=== PATIENT | female | born 1955 | race Caucasian/White ===

== ENCOUNTER 2024-03-03 07:23 | Emergency (ER) | payer OTHER, SELFPAY ==
--- NOTE | ~2024-03-03 | XR_ITS ---
EXAMINATION: XR CHEST CLINICAL INFORMATION: Cough. COMPARISON: None available. TECHNIQUE: Frontal view of the chest was obtained. FINDINGS: There is no gross pneumothorax. Heart size is normal. Degenerative changes in the thoracic spine. Minimal opacities in the left costophrenic angle. Linear stranding along the bilateral right upper paramediastinal and lower regions of indeterminate age and chronicity, most notable in the mid to lower right lung with a more tubular component. XR/XR chest 1V IMPRESSION: Minimal opacities in the left costophrenic angle. Linear stranding along the bilateral right upper paramediastinal and lower regions of indeterminate age and chronicity, most notable in the mid to lower right lung with a more tubular component. CT scan recommended for further evaluation. This study was presented today March 03, 2024 for interpretation. Stat results provided at this time as requested by referring provider. Electronically signed by: Shilpi Hallman MD 03/03/2024 09:42 AM [facility]
--- NOTE | ~2024-03-03 | CT_ITS ---
EXAMINATION: CT CHEST WITH CONTRAST CLINICAL INFORMATION: Abnormal chest x-ray. COMPARISON: No priors. Correlated to chest x-ray dated March 03, 2024. TECHNIQUE: Multidetector volumetric CT imaging of the chest was obtained after the administration of 65 mL of Omnipaque 350 intravenous contrast without immediate adverse reactions. Axial MIP volume rendering provided. Sagittal and coronal reformatted images were obtained. This CT examination was performed using dose optimization techniques as appropriate, variously including the following: *Automated exposure control *Adjustment of mA and/or kV according to patient size (this includes techniques or standardized protocols for targeted exams where dose is matched to indication/reason for exam; i.e. extremities or head) *Use of iterative reconstruction technique DLP: 268 mGy-cm FINDINGS: PATIENT ADVOCATE: No consolidation, pleural effusion or pneumothorax. Atelectasis in the periphery of the lung bases. No bronchiectasis. No honeycombing. No gross pulmonary nodules. Respiratory airways patent. No lymphadenopathy, mediastinum or pulmonary hilum. No pericardial effusion. Calcified plaques in the thoracic aortic arch. Calcified plaques in the coronary arteries. Multifocal different sizes lobulated and round hypodense lesions throughout the liver parenchyma. Thyroid gland is not enlarged. Old compression deformity of T5 representing 80% volume loss. Osteopenia versus osteoporosis. Superior endplate compression deformity at T7, T8 and T10. CT/CT chest w IV con IMPRESSION: No acute airspace disease. Old compression deformities more conspicuous at T5 vertebra. Nonspecific multifocal hypodense lesions throughout the hepatic parenchyma. Fleischner guidelines were followed. Electronically signed by: Jakob Doran MD 03/03/2024 02:11 PM [facility]
[2024-03-03 07:30] VITALS: BP 138/67; BP 144/62; PULSE 85; PULSE 88; RESP 16; TEMP 36.9; O2SAT 100; O2SAT 99; BMI 30.8
[2024-03-03 07:33] VITALS: RESP 16; O2SAT 100
--- NOTE | 2024-03-03 07:57 | ECG_ITS ---
Test Reason : CHEST PAIN Blood Pressure : / mmHG Vent. Rate : 071 BPM Atrial Rate : 071 BPM P-R Int : 140 ms QRS Dur : 080 ms QT Int : 386 ms P-R-T Axes : 037 004 008 degrees QTc Int : 419 ms Normal sinus rhythm Normal ECG No previous ECGs available Referred By: Kiki Isaacs Electronically Signed By:Sherwin Wright
--- NOTE | 2024-03-03 07:58 | ED.GENADULT ---
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 She notes since start of February after visiting her [facility] in [place] she started to get sick with cough, congestion, nasal congestion, had one day of fever in [place]. She returned home on 02/20 took Zpak without relief but no swabs or CXR done. This past week Myranda called in medrol dose marychuy which she has not taken as the first couple of days she didn't see any relief. She is not on nasal spray or decongestants. Started to have increased symptoms, feels weak, chest tightness, cough, L sided chest pain with breathing. MD complaint: weakness, lethargy, nausea and vomiting, chest tightness Onset (ago): week(s) (few) Location: head and chest Radiation: non-radiation Severity: moderate Quality: aching Pain Consistency: constant and intermittent Relieving factors: none Exacerbating factors: other (inspiration) Associated symptoms: chest pain, cough, headaches, loss of appetite, malaise, nausea/vomiting, shortness of breath and weakness Treatments prior to arrival: other Related Data Allergies Allergy/AdvReac Type Severity Reaction Status Date / Time Sulfa (Sulfonamide Allergy Hives Verified 03/03/24 07:32 Antibiotics) Review of Systems Review of Systems: Constitutional : No Fever, No Chills ENT/Mouth : No Hoarseness, No sore throat, No Rhinorrhea, pos sinus pressure, nasal congestion Eyes: No Redness, No Discharge, No Vision Changes Cardiovascular : pos Chest Pain, positive SOB, No Edema Respiratory : positive Cough, No Sputum, positive Wheezing, Gastrointestinal : No Nausea, No Vomiting, No Diarrhea, No abdominal Pain Genitourinary : No Dysuria, No Hematuria Musculoskeletal : No joint pain, No Myalgias Skin : No rash Neuro : pos Weakness, No Numbness, pos Headache Psych : No anxiety, depression All other systems reviewed and are negative [facility] Past Medical History Attestation statement: The following information was validated with the patient. Source: old records reviewed Medical History (Updated 03/03/24 @ 10:57 by Kiki Isaacs DO) Adrenal insufficiency Surgical History (Updated 03/03/24 @ 08:10 by Kiki Isaacs DO) History of surgical removal of pituitary gland Social History Social History Smoked in Last 30 Days: No Use of substances other than those prescribed or required for medical reasons: No Advance Directives: No Advance Directives Information Provided: Yes Physical Exam ED Vital Signs: Vital Signs - 24 hr 03/03/24 07:30 03/03/24 07:33 03/03/24 10:50 Temperature 98.4 F Pulse Rate 85 86 Respiratory Rate 16 16 18 Blood Pressure 144/62 H 118/56 L Pulse Oximetry 99 100 97 Oxygen Delivery Method Room Air Room Air Room Air 03/03/24 12:33 03/03/24 12:54 Temperature Pulse Rate 83 93 Respiratory Rate 18 16 Blood Pressure 102/56 L Pulse Oximetry 97 95 Oxygen Delivery Method Room Air Room Air BMI result Body Mass Index 30.8 Appearance: Alert. Oriented X3. No acute distress. Eyes: Pupils equal, round and reactive to light. ENT: Pharynx normal. TMs normal bilaterally Neck: Normal inspection. Neck supple. CVS: Normal heart rate and rhythm. Pulses normal. Respiratory: No respiratory distress. Breath sounds normal. Abdomen: Soft and nontender. Skin: Skin warm and dry. Normal skin color. Extremities: No lower extremity edema. Neuro: Oriented X 3. No motor deficit. No sensory deficit. Medications Administered Discontinued Medications Generic Name Dose Route Start Last Admin Trade Name Freq PRN Reason Stop Dose Admin Hydrocortisone Sodium Succinate 50 mg 03/03/24 13:18 03/03/24 13:36 Hydrocortisone Sod Succ/Pf 100 Mg Vial IVPUSH 03/03/24 13:19 50 mg ONCE ONE Administration Sodium Chloride 1,000 mls @ 999 mls/hr 03/03/24 07:57 03/03/24 10:11 Ns IV 03/03/24 08:57 Infused .Q1H1M ONE Infusion Iohexol 65 ml 03/03/24 10:27 03/03/24 10:28 Iohexol 350 Mg/Ml 100 Ml Infus..Btl IV 03/03/24 10:28 65 ml ONCE ONE Administration Ondansetron HCl 4 mg 03/03/24 07:57 03/03/24 08:59 Ondansetron Hcl 4 Mg/2 Ml Vial IVPUSH 03/03/24 07:58 4 mg ONCE ONE Administration Medical Decision Making Medical Decision Making [facility] Narrative: 68 yo female with 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 She now has chest pain and dyspnea at this time given recent travel and her symptoms will start on fluids, IV zofran, obtain viral panel, basic labs, ddimer, EKG, CXR for pathology Differential Diagnosis Differential Diagnoses: The differential diagnosis associated with the presentation includes URI, VTE, fatigue, lyte abnormality Admission/Observation Consideration of admission/observation: Escalation of care including admission/observation considered labs and VS reassuring no hypoxia suspect her prolonged illness due to post covid recovery Lab Data [facility] Lab Attestation statement: I reviewed the patient's lab results. TSH low but T4 normal her PCP can re order test next week 03/03/24 08:45 03/03/24 08:45 Labs: Lab Results 03/03/24 03/03/24 Range/Units 08:44 08:45 WBC 8.6 (4.8-10.8) X10*3/uL RBC 4.81 (4.20-5.50) X10*6/uL Hgb 13.7 (12.0-16.0) g/dl Hct 42.2 (37.0-47.0) % MCV 87.7 (80.0-98.0) fL MCH 28.5 (27.0-33.0) pg MCHC 32.5 (31.0-35.0) g/dl RDW 13.7 (11.0-16.0) % Plt Count 268 (160-400) X10*3/uL MPV 9.6 (9.4-12.3) fL Immature Gran % (Auto) 0.3 (0.0-0.4) % Neut % (Auto) 64.4 (45-73) % Lymph % (Auto) 26.5 (20-40) % [place] % (Auto) 6.7 (2-11) % Eos % (Auto) 1.3 (0-4) % Baso % (Auto) 0.8 (0-2) % Lymph # (Auto) 2.3 (1.2-4.9) X10*3/uL [place] # (Auto) 0.6 (0.1-1.2) X10*3/uL Eos # (Auto) 0.1 (0.0-0.4) X10*3/uL Baso # (Auto) 0.1 (0.0-0.2) X10*3/uL Abs Immat Gran (auto) 0.03 (0.00-0.03) X10*3/uL Absolute Neuts (auto) 5.6 (2.0-8.3) x10*3/uL Absolute Nucleated RBC 0.000 (0.0-0.012) X10*3/uL Nucleated RBC % (auto) 0.0 (0.0-0.2) /100WBC D-Dimer High Sensitivty < 150 NG/ML Sodium 136 (135-145) mmol/L Potassium 3.8 (3.3-5.1) mmol/L Chloride 101 (96-108) mmol/L Carbon Dioxide 28 (22-29) mmol/L Anion Gap 11 L (12-20) BUN 14 (9-16) mg/dL Creatinine 0.84 (0.5-1.4) mg/dL Estim Creat Clear Calc 63.0 Estimated GFR > 60 Random Glucose 100 (60-115) mg/dL Calcium 8.5 (8.4-10.2) mg/dL Magnesium 2.1 (1.6-2.6) mg/dL Total Bilirubin 1.0 (0.0-1.0) mg/dL Direct Bilirubin 0.3 (0.0-0.5) mg/dL AST 26 (5-31) U/L ALT 17 (0-31) U/L Alkaline Phosphatase 60 (39-117) U/L Troponin I High Sens < 2.7 (<3.5-17.0) ng/L Total Protein 6.8 (6.5-8.0) g/dL Albumin 3.7 (3.5-5.0) g/dL Lipase 47 (8-78) U/L TSH < 0.01 L (0.32-4.0) uIU/mL Free T4 1.46 (0.71-1.85) ng/dL Influenza Type A (PCR) NEGATIVE (Negative) Influenza Type B (PCR) NEGATIVE (Negative) RSV RNA Qual (PCR) NEGATIVE (Negative) SARS-CoV-2 RNA (RT-PCR) POSITIVE A (Negative) Independent Interpretation I performed an independent interpretation of an: EKG, Plain X-Ray (subtle opacities) and CT Scan (no pneumonia) Interpretation: Rate: 71 Rhythm: NSR [place]: normal Normal P waves. Normal JUNE. Normal QRS complex. ST T wave : inverted t waves V1 and III, no SHARIFA qTC: 419 prior studies: no acute ischemia The study has been interpreted contemporaneously by me. . Radiology Impression Discussion of test interpretation with radiology: I have reviewed the radiologist's reading. Independent Historian Clinical information obtained from an independent historian. History obtained from or confirmed by: Spouse Discharge Plan Discharge Clinical Impression: Post covid-19 condition, unspecified Patient Disposition: Home, Self-Care Instructions: Weakness (ED) Additional Instructions: call your doctor but during this time I would increase your prednisone to 20mg a day for 4 days then back down to 10mg a day for 3 days then back down to 5mg to see if this helps. your labs were reassuring TSH 0.01 Free T4 1.46 follow up with your doctor there were no signs of infection in the lung you had small cysts on the liver would get outpatient ultrasound with your doctor your liver enzymes are normal return for any worsening symptoms or concerns. stay hydrated monitor your breathing and any chest pains old compression deformity of T5 nothing new CT/CT chest w IV con IMPRESSION: No acute airspace disease. Old compression deformities more conspicuous at T5 vertebra. Nonspecific multifocal hypodense lesions throughout the hepatic parenchyma. Fleischner guidelines were followed. Print Language: Paraguayan
[2024-03-03 08:55] LABS: MANUAL DIFF FLAG NO
[2024-03-03 08:57] LABS: Basophils Absolute Auto 0.1 X10*3/uL (0.0-0.2); Basophils Percent Auto 0.8 % (0-2); Eosinophils Absolute Auto 0.1 X10*3/uL (0.0-0.4); Eosinophils Percent Auto 1.3 % (0-4); Hematocrit 42.2 % (37.0-47.0); Hemoglobin 13.7 g/dl (12.0-16.0); Imm Gran Abs Auto 0.03 X10*3/uL (0.00-0.03); Imm Gran Pct Auto 0.3 % (0.0-0.4); Lymphocytes Absolute Auto 2.3 X10*3/uL (1.2-4.9); Lymphocytes Percent Auto 26.5 % (20-40); Mean Corpuscular HGB Conc 32.5 g/dl (31.0-35.0); Mean Corpuscular Hemoglobin 28.5 pg (27.0-33.0); Mean Corpuscular Volume 87.7 fL (80.0-98.0); Mean Platelet Volume 9.6 fL (9.4-12.3); Monocytes Absolute Auto 0.6 X10*3/uL (0.1-1.2); Monocytes Percent Auto 6.7 % (2-11); Neutrophils Absolute Auto 5.6 x10*3/uL (2.0-8.3); Neutrophils Percent Auto 64.4 % (45-73); Platelet Count 268 X10*3/uL (160-400); Red Blood Count 4.81 X10*6/uL (4.20-5.50); Red Cell Distribution Width 13.7 % (11.0-16.0); White Blood Count 8.6 X10*3/uL (4.8-10.8)
[2024-03-03] MEDS: ondansetron HCL 4 MG/2 ML VIAL IVPUSH (08:59)
[2024-03-03] MEDS: 0.9 % Sodium Chloride 1,000 ML 999 ML IV (08:59)
[2024-03-03 09:05] LABS: D Dimer High Sensitivity < 150 NG/ML
[2024-03-03 09:17] LABS: Alanine Aminotransferase 17 U/L (0-31); Albumin Level 3.7 g/dL (3.5-5.0); Alkaline Phosphatase 60 U/L (39-117); Anion Gap 11 (12-20); Aspartate Amino Transferase 26 U/L (5-31); Bilirubin Direct 0.3 mg/dL (0.0-0.5); Blood Urea Nitrogen 14 mg/dL (9-16); Calcium 8.5 mg/dL (8.4-10.2); Carbon Dioxide 28 mmol/L (22-29); Chloride 101 mmol/L (96-108); Estimated Glomerular Filt Rate > 60; Glucose Random 100 mg/dL (60-115); Lipase 47 U/L (8-78); Magnesium 2.1 mg/dL (1.6-2.6); Potassium 3.8 mmol/L (3.3-5.1); Sodium 136 mmol/L (135-145); Total Protein 6.8 g/dL (6.5-8.0)
[2024-03-03 09:24] LABS: Troponin-I High Sensitivity < 2.7 ng/L (<3.5-17.0)
[2024-03-03 09:38] LABS: Influenza A PCR NEGATIVE (Negative); Influenza B PCR NEGATIVE (Negative); Resp Syncy Virus RNA Qual PCR NEGATIVE (Negative); SARS COV2 PCR INHOUSE POSITIVE (Negative)
[2024-03-03 10:21] LABS: TSH reflex Free T4 < 0.01 uIU/mL (0.32-4.0)
[2024-03-03] MEDS: iohexoL 350 MG/ML 100 ML INFUS..BTL 65 ML IV (10:28)
[2024-03-03 10:50] VITALS: BP 118/56; PULSE 86; RESP 18; O2SAT 97
[2024-03-03 10:51] LABS: Free T4 (Free Thyroxine) 1.46 ng/dL (0.71-1.85)
[2024-03-03 12:33] VITALS: PULSE 83; RESP 18; O2SAT 97
[2024-03-03 12:54] VITALS: BP 102/56; PULSE 93; RESP 16; O2SAT 95
[2024-03-03] MEDS: Hydrocortisone Sod Succ/PF 100 MG VIAL 50 MG IVPUSH (13:36)
[2024-03-03 15:03] VITALS: BP 102/56; PULSE 93; RESP 16; TEMP -17.7; TEMP 0; O2SAT 95
== END 2024-03-03 15:04 | disposition home or self-care (01) ==
PROVIDERS: Emergency Provider Emergency Medicine
DX: U07.1 COVID-19 (principal)
CPT/HCPCS: 0241U; 36415; 71045; 71260; 80048; 80076; 83690; 83735; 84439; 84443; 84484; 85025; 85379; 93005; 96361; 96374; 96375; 99284; 99285; J1720; J2405; Q9967

== ENCOUNTER → 2024-03-03 07:57 | Outpatient (BNV) | payer OTHER, SELFPAY | PROVIDERS: Emergency Provider Emergency Medicine; Visit Provider Internal Medicine Cardiovascular Disease | DX: R07.9 Chest pain, unspecified (principal) | CPT/HCPCS: 93010 ==

== ENCOUNTER → 2024-03-03 09:46 | Outpatient (BNV) | payer OTHER, SELFPAY | PROVIDERS: Emergency Provider Emergency Medicine; Visit Provider Radiology Diagnostic Radiology | DX: K76.89 Other specified diseases of liver (principal) | CPT/HCPCS: 71260 ==

== ENCOUNTER 2024-09-21 12:36 | Emergency (ER) | payer OTHER, SELFPAY ==
[2024-09-21 13:20] VITALS: BP 145/82; PULSE 111; RESP 20; TEMP 35.9; O2SAT 99; BMI 30.8
--- NOTE | 2024-09-21 13:26 | ED_ITS ---
HPI - General Adult General Chief complaint: Ear Problems Stated complaint: Left ear issue Time Seen by Provider: 09/21/24 15:33 Source: patient and RN notes reviewed Mode of arrival: ambulatory Limitations: no limitations History of Present Illness ED Provider: Robyn Willard PA-C [facility] narrative: This is a 68-year-old female who presents emergency department with concerns of left ear pain. Reports that she has had ear pain for several weeks however this worsened significantly this past week. She was seen at her primary care physician on Sunday, and was told that she had some wax building up in her ear and they attempted to remove the wax with irrigation in the office. There was no earwax that was able to be removed from the ear canal itself. She was started on azithromycin which she has had 2 doses of, and she also has been using Debrox however no cerumen has been removed and she continues to have severe ear pain. She also has pain that extends into her left maxillary region. She denies any fevers, chills, chest pain, shortness of breath, abdominal pain, nausea, vomiting or diarrhea. No other complaints or concerns at this time. MD complaint: Ear pain Onset (ago): week(s) Radiation: non-radiation Pain Consistency: constant Relieving factors: none Exacerbating factors: none Associated symptoms: denies other symptoms Treatments prior to arrival: none Related Data Previous Rx's ?Medication ?Instructions ?Recorded loratadine 10 mg tablet 10 mg PO DAILY #30 tabs 09/09 06/03 Allergies Allergy/AdvReac Type Severity Reaction Status Date / Time amoxicillin (From Augmentin) Allergy Vomiting Verified 09/21/24 13:25 clavulanic acid (From Allergy Vomiting Verified 09/21/24 13:25 Augmentin) Sulfa (Sulfonamide Allergy Hives Verified 09/21/24 13:24 Antibiotics) Review of Systems 2 Review of Systems: Yes all other systems are reviewed and are negative Constitutional: Constitutional: Reports as per [facility] Past Medical History Attestation statement: The following information was validated with the patient. Medical History Adrenal insufficiency Surgical History History of surgical removal of pituitary gland Social History Social History (Reviewed 09/21/24 @ 17:30 by EVON Patterson Advance Directives: No Advance Directives Information Provided: Yes Do you have a plan to hurt others: No Plan Physical Exam ED Vital Signs: Vital Signs - 24 hr 09/21/24 13:20 09/21/24 17:13 Temperature 96.7 F L 96.7 F L Pulse Rate 111 H 111 H Respiratory Rate 20 20 Blood Pressure 145/82 H 145/82 H Pulse Oximetry 99 99 Oxygen Delivery Method Room Air Room Air BMI result Body Mass Index 30.8 Const General: cooperative, comfortable and no acute distress Orientation/consciousness: patient oriented x3 Limitations: no limitations HENMT Other: left auditory canal is obscured by cerumen. R TM is nonerythematous, nonedematous. Head: Yes normal to inspection, Yes normocephalic and Yes atraumatic Ears: hearing grossly normal bilaterally General nose exam: Normal external nose present Face and sinus: Yes normal facial exam Mouth: Normal oral and palatal mucosa present, oropharynx normal and moist mucous membranes Throat: Yes posterior oropharynx normal Eyes General: appearance normal, both eyes and all related structures Eyelids: Yes eyelids normal Conjunctivae: conjunctivae normal Sclerae: sclerae normal Pupils: Equal, round and reactive pupils present EOM: EOMs intact bilaterally Neck Neck: Yes normal visual inspection, Yes full ROM and Yes no lymphadenopathy Lymphatic: no lymphadenopathy noted Chest Chest palpation & inspection: normal inspection of the chest Resp Effort & Inspection: normal respiratory effort and able to speak in complete sentences Auscultation: clear to auscultation bilaterally, no crackles, no rales, no rhonchi and no wheezes Cardio Rate: regular rate Rhythm: regular rhythm Heart sounds: S1 normal heart sound present and S2 normal heart sound present GI Inspection: Yes normal to inspection Skin General skin exam: no rashes or lesions noted Trauma: no lacerations or abrasions Wounds: no wounds Neuro General: patient oriented x3 and moves all extremities Cranial nerves: Yes Equal, round and reactive pupils present Extrem General: Yes normal to inspection Right upper extremity: normal to inspection Left upper extremity: normal to inspection Right lower extremity: normal to inspection Left lower extremity: normal to inspection Course Course Course Narrative: Medical screening exam performed. Please refer to detailed history, exam, evaluation, and management by primary provider. Three weeks of left ear pain after flying. Saw PCP on Sunday, attempted to irrigate to remove cerumen from the left ear but was unsuccessful. Placed on azithromycin. Patient reports increased pain and swelling to the left side of her face. Monitor his cerumen in the left ear, unable to visualize TM. Right ear clear, intact TM. Hemodynamically stable. Labs ordered. History of adrenal insufficiency. Medications Administered Discontinued Medications Generic Name Dose Route Start Last Admin Trade Name Lyubov PRN Reason Stop Dose Admin Docusate Sodium 100 mg 09/21/24 15:59 09/21/24 16:06 Docusate Sodium 100 Mg/10 Ml Liquid PO 09/21/24 16:00 100 mg ONCE ONE Administration Procedures Ear Wax Removal Left Ear: Cerumenolytic Used: Colace and 5-10% Sodium Bicarb solution Results: Re-examined: cerumen removed completely TM Examination: TM(s) erythematous (Mildly) Patient Tolerated Procedure: well and no complications Complications: vertigo/dizziness Technique: ear canal irrigated Additional Comments: Patient experienced mild dizziness post irrigation, however this improved after several minutes. Medical Decision Making Medical Decision Making [facility] Narrative: This is a 68-year-old female, with a history of adrenal insufficiency, who presents emergency department with concerns of left ear pain for the last several weeks, worsening over the last week. On arrival, blood pressure elevated at 145/82, pulse 111. She is speaking in full sentences under no acute distress. Labs were obtained prior to my evaluation, she has no leukocytosis, stable H&H, chemistry revealing no significant electrolyte derangement. Left ear TM is obscured by moderate amount of cerumen, right auditory canal is unremarkable. Left ear was flushed using warm water and hydrogen peroxide as well as docusate soak. Patient tolerated procedure well, moderate amount of cerumen was removed from the ear canal. After ear was flushed, left TM slightly erythematous and bulging. Discussed overall findings with patient. Encouraged to continue taking the azithromycin that was prescribed to her several days ago. Advised to discontinue the Debrox that she was prescribed. Encouraged to take an [id number] allergy med like Claritin or Roxana as she may be also experiencing Eustachian tube dysfunction. Encouraged to take ibuprofen and or Tylenol. Given ENT follow-up. Patient was given strict return precautions. She understands and agrees with plan. Patient stable for discharge. Differential Diagnosis Differential Diagnoses: The differential diagnosis associated with the presentation includes Om, awake, cerumen impaction, TM perforation Admission/Observation Consideration of admission/observation: Escalation of care including admission/observation considered Lab Data [facility] Lab Attestation statement: I reviewed the patient's lab results. See MDM and course 09/21/24 14:31 09/21/24 14:31 Labs: Lab Results 09/21/24 Range/Units 14:31 WBC 8.3 (4.8-10.8) X10*3/uL RBC 4.88 (4.20-5.50) X10*6/uL Hgb 14.1 (12.0-16.0) g/dl Hct 42.5 (37.0-47.0) % MCV 87.1 (80.0-98.0) fL MCH 28.9 (27.0-33.0) pg MCHC 33.2 (31.0-35.0) g/dl RDW 13.9 (11.0-16.0) % Plt Count 268 (160-400) X10*3/uL MPV 9.5 (9.4-12.3) fL Immature Gran % (Auto) 0.2 (0.0-0.4) % Neut % (Auto) 71.4 (45-73) % Lymph % (Auto) 22.9 (20-40) % [place] % (Auto) 4.7 (2-11) % Eos % (Auto) 0.2 (0-4) % Baso % (Auto) 0.6 (0-2) % Lymph # (Auto) 1.9 (1.2-4.9) X10*3/uL [place] # (Auto) 0.4 (0.1-1.2) X10*3/uL Eos # (Auto) 0.0 (0.0-0.4) X10*3/uL Baso # (Auto) 0.1 (0.0-0.2) X10*3/uL Abs Immat Gran (auto) 0.02 (0.00-0.03) X10*3/uL Absolute Neuts (auto) 6.0 (2.0-8.3) x10*3/uL Absolute Nucleated RBC 0.000 (0.0-0.012) X10*3/uL Nucleated RBC % (auto) 0.0 (0.0-0.2) /100WBC Sodium 142 (135-145) mmol/L Potassium 4.8 D (3.3-5.1) mmol/L Chloride 108 (96-108) mmol/L Carbon Dioxide 26 (22-29) mmol/L Anion Gap 13 (12-20) BUN 22 H (9-16) mg/dL Creatinine 0.87 (0.5-1.4) mg/dL Estim Creat Clear Calc 60.9 Estimated GFR > 60 Random Glucose 100 (60-115) mg/dL Calcium 9.8 D (8.4-10.2) mg/dL Radiology Impression Discussion of test interpretation with radiology: I have reviewed the radiologist's reading. Discharge Plan Discharge Clinical Impression: Cerumen impaction, Otalgia Patient Disposition: Home, Self-Care Instructions: Earache (ED) Additional Instructions: You were seen in the emergency department due to left ear pain. We were able to flush out your ear canal, and a moderate amount of cerumen was expressed. You do have slight redness on your ear drum, this should resolve with the antibiotics that you are on. You also do have fluid behind her eardrum, I am recommending you start on an allergy medication to help decrease the fluid. Continue taking prescribed antibiotic as directed. You may take ibuprofen and or Tylenol as needed for pain and symptoms. Follow-up with an early learning teacher, call tomorrow to make an appointment. If any new or worsening symptoms occur including but not limited to worsening pain, high fevers, severe chest pain or shortness of breath, please seek emergent care. [facility] [address], [address], [place], [place] [phone] Prescriptions: New loratadine 10 mg tablet 10 mg PO DAILY Qty: 30 0RF Interventions: ED Discharge Assessment Last Done: 09/21/24 17:13 Discharge Date/Time: 09/21/24 17:14 Print Language: Thai
[2024-09-21 14:43] LABS: MANUAL DIFF FLAG NO
[2024-09-21 14:44] LABS: Hematocrit 42.5 % (37.0-47.0); Hemoglobin 14.1 g/dl (12.0-16.0); Imm Gran Abs Auto 0.02 X10*3/uL (0.00-0.03); Imm Gran Pct Auto 0.2 % (0.0-0.4); Lymphocytes Absolute Auto 1.9 X10*3/uL (1.2-4.9); Mean Corpuscular HGB Conc 33.2 g/dl (31.0-35.0); Mean Corpuscular Hemoglobin 28.9 pg (27.0-33.0); Mean Corpuscular Volume 87.1 fL (80.0-98.0); NRBC Abs Auto 0.000 X10*3/uL (0.0-0.012); NRBC Pct Auto 0.0 /100WBC (0.0-0.2); Platelet Count 268 X10*3/uL (160-400); Red Blood Count 4.88 X10*6/uL (4.20-5.50); White Blood Count 8.3 X10*3/uL (4.8-10.8)
[2024-09-21 14:55] LABS: Anion Gap 13 (12-20); Blood Urea Nitrogen 22 mg/dL (9-16); Calcium 9.8 mg/dL (8.4-10.2); Carbon Dioxide 26 mmol/L (22-29); Chloride 108 mmol/L (96-108); Creatinine Clr Calc Pharmacy 60.9; Estimated Glomerular Filt Rate > 60; Potassium 4.8 mmol/L (3.3-5.1); Sodium 142 mmol/L (135-145)
[2024-09-21 17:13] VITALS: BP 145/82; PULSE 111; RESP 20; TEMP 35.9; O2SAT 99
== END 2024-09-21 17:14 | disposition home or self-care (01) ==
PROVIDERS: Physician Assistant; Emergency Provider Emergency Medicine
DX: H92.02 Otalgia, left ear (principal); H61.22 Impacted cerumen, left ear
CPT/HCPCS: 36415; 69209; 80048; 85025; 99282; 99284